=== PATIENT | male | born 1935 | race Caucasian/White ===

== ENCOUNTER → 2023-06-27 09:24 | Outpatient (REF) | payer MEDICARE, OTHER, SELFPAY | LOC: HWRAD 09:24 | PROVIDERS: ATTENDING PHYSICIAN Family Medicine | DX: R10.9 Unspecified abdominal pain (principal) | CPT/HCPCS: 71101 ==

== ENCOUNTER → 2023-06-28 06:58 | Outpatient (REF) | payer MEDICARE, OTHER, SELFPAY ==
[2023-06-28 09:34] LABS: Blood Urea Nitrogen 23 mg/dl (9-20)
== END ==
LOC: HWLAB 06:58
PROVIDERS: ATTENDING PHYSICIAN Family Medicine
DX: Z01.812 Encounter for preprocedural laboratory examination (principal)
CPT/HCPCS: 36415; 82565; 84520

== ENCOUNTER → 2023-07-02 15:03 | Outpatient (REF) | payer MEDICARE, OTHER, SELFPAY | LOC: HWRAD 15:03 | PROVIDERS: ATTENDING PHYSICIAN Family Medicine | DX: R10.9 Unspecified abdominal pain (principal) | CPT/HCPCS: 71260; 74160; Q9967 ==

== ENCOUNTER 2024-09-21 08:17 | Emergency (ER) | payer MEDICARE, OTHER, SELFPAY ==
[2024-09-21 08:23] VITALS: BP 94/55
[2024-09-21 09:13] LABS: Hematocrit 41.0 % (39.0-52.0); Hemoglobin 13.8 g/dL (13.0-18.0); Mean Corp Hgb Conc. 33.7 g/dL (33.0-37.0); Mean Corpuscular Volume 84.9 fL (80.0-94.0); Nucleated Red Blood Cells % 0 % (-); Platelet Count 179 10^3/uL (130-400); Red Cell Dist. Width 14.4 % (11.5-14.5)
[2024-09-21 09:45] LABS: ALT (SGPT) 40 U/L (0-50); AST (SGOT) 37 U/L (17-59); Albumin 3.7 g/dl (3.5-5.0); Alkaline Phosphatase 64 U/L (38-126); Blood Urea Nitrogen 31 mg/dl (9-20); Calcium 9.6 mg/dl (8.4-10.2); Carbon Dioxide 27 mmol/L (22-30); Chloride 105 mmol/L (98-107); Glucose 94 mg/dl (70-99); Potassium 4.9 mmol/L (3.5-5.1); Sodium 138 mmol/L (135-145); Total Protein 6.0 g/dl (6.3-8.2); eGFR > 60.00
[2024-09-21 09:49] LABS: Troponin I < 0.012 ng/ml
[2024-09-21 10:25] VITALS: BP 136/75
[2024-09-21 11:48] VITALS: BP 124/71
[2024-09-21 12:00] VITALS: BP 122/78
--- NOTE | 2024-09-21 12:41 | ED.GENMED ---
History of Present Illness
General
Chief Complaint: Swelling
Time Seen by Provider: 09/21/24 10:18
History of Present Illness
History of Present Illness:
89-year-old male presents to the ER with his significant other for evaluation of bilateral lower extremity edema along with a feeling of tightness in his chest which occurred this morning. Patient is 6 days postop from right hip replacement.
He has been back on his Eliquis given his prior history of atrial fibrillation. He has no prior personal history of venous thromboembolic disease nor prior history of congestive heart failure. Patient has been using his walker for ambulation. He
states that while he was walking while experiencing discomfort he did not have any worsening of his symptoms. He has been eating and drinking without any difficulty. He has been passing gas and has had 1 bowel movement since his surgery. He
denies nausea or vomiting. Patient did report some tingling discomfort to his bilateral feet which has been improving since this morning.
Past History
Past History
ED Past Medical History: Arrthythmia and Other (BPH, Gout)
ED Past Surgical History: Orthopedic (knee)
Social History
Tobacco: Non-smoker
Alcohol: None
Review of Systems
Review of Systems
Allergies reviewed?: Yes
Phy Exam
Physical Exam
Physical Exam:
Patient is awake, alert, appears in no acute distress, mucous membranes moist, conjunctiva pink, no JVD, heart regular rate and rhythm not murmurs or ectopy, lungs are clear to auscultation without wheezes rales or rhonchi, abdomen is soft and
nontender without focal pain on palpation, right lower extremity reveals his surgical dressings to be clean dry and intact, no surrounding erythema, appropriate tenderness on palpation, 2+ edema noted to right ankle, 1+ edema noted to left ankle, no
calf pain on palpation, healing appropriate ecchymosis present right lower extremity, brisk cap refill present to the toes bilaterally, GCS is 15
Scores
Heart Failure Risk
Heart Failure Risk Score: Not Applicable
Course
Orders/Labs/Results
Orders:
Orders
09/21/24 08:53
EKG [Electrocardiogram (*1)] Urgent
Reason for Study: Shortness of Breath
09/21/24 08:54
EKG- Treatment ONCE
09/21/24 09:08
Complete Blood Count/With Diff Urgent
Comprehensive Metabolic Panel Urgent
NT-proBNP Urgent
Troponin I Urgent
09/21/24 10:46
CR Chest - 2 Views Urgent
Comment:
Reason For Exam: DYSPNEA
09/21/24 10:57
Electrocardiogram (*1) Urgent
Reason for Study: Chest Pain
EKG- Treatment ONCE
US Periph Venous LOWER Ext RT Urgent
Comment:
Reason For Exam: swelling
09/21/24 11:59
Troponin I Urgent
09/21/24 13:38
Furosemide [Lasix] 40 mg PO NOW STA
Abnormal Lab Results
09/21/24
09:08
Abs Immat Gran (auto) 0.2 H 10^3/uL
(0-0.05)
Absolute Neuts (auto) 6.8 H 10^3/uL
(1.4-6.5)
Absolute Monos (auto) 1.4 H 10^3/uL
(0.1-0.6)
Immature Gran % 2.3 H %
(0-0.5)
Lymphocytes % 15.4 L %
(20.5-51.1)
Monocytes % 13.6 H %
(1.7-9.3)
BUN 31 H mg/dl
(9-20)
Total Bilirubin 1.8 H mg/dl
(0.2-1.3)
Total Protein 6.0 L g/dl
(6.3-8.2)
09/21/24 09:08
09/21/24 09:08
Very reassuring troponin x 2 they are both negative, minimal elevation in BNP, no prior for comparison, electrolytes within normal limits
Vital Signs
Initial and Last Documented VS:
Initial Vital Signs
Temp Pulse BP Pulse Ox
97.6 F 67 94/55 98
09/21/24 08:23 09/21/24 08:23 09/21/24 08:23 09/21/24 08:23
Last Documented Vital Signs
Temp Pulse Resp BP Pulse Ox
97.6 F 69 17 109/70 95
09/21/24 08:23 09/21/24 13:30 09/21/24 13:30 09/21/24 13:50 09/21/24 13:15
MDM/Problems Addressed
Differential Diagnosis Includes:
Differential diagnosis considered but not limited to CHF, ACS, arrhythmia, pneumonia, DVT along with other etiologies considered
*Radiology
Radiology exam reviewed: radiology read reviewed (IMPRESSION: Cardiomegaly without overt pulmonary edema or focal airspace disease.)
*Pulse Oximetry
SaO2: 93
Oxygen Mode of Delivery: Room air
Patient hypoxic: no
*EKG
Interpreted by ED Provider?: Yes (I dependently viewed and interpreted rhythm strip timed 1146 showing sinus rhythm with occasional PVCs. I independently viewed and interpreted twelve-lead EKG showing normal sinus rhythm with occasional PVCs, rate
73, leftward axis, right bundle branch block, no ST elevations, this is an abnormal t)
EKG Intrepretation Date: 09/21/24
EKG Intrepretation Time: 11:51
Interpretation: abnormal
Comparison EKG: no changes
Ischemia: no ischemia
*Critical Care Note
Total Time (30-74mins, 75-104mins- exclusive of procedures): Not Applicable
Update Note
Update Note:
Patient resting comfortably throughout time in the emergency department. I discussed with patient and present bedside very reassuring workup including negative troponin x 2. Minimal changes on chest x-ray, no evidence for hypoxia. I
discussed with him one-time dose of diuretic for treatment of possible mild congestive heart failure. I discussed with them need for close outpatient follow-up with his sole cutter, Dr. Bonner. I was able to reach out to Dr. Bonner who will
help facilitate close outpatient follow-up with him in the office this week. Patient was able to ambulate with a steady gait utilizing his walker and felt comfortable with plan for discharge home. They have no questions prior to leaving department.
ED Attending Note
-
Portions of this chart may have been created with voice recognition software.� Occasional wrong word or��sound alike� substitutions may have occurred due to the inherent limitations of voice recognition software.
Discharge Plan
Departure
Patient Disposition: Home (Routine Discharge)
Date of Disposition: 09/21/24
Time of Disposition: 13:42
Patient with high blood pressure during this ER visit?: No
Condition: Good
Discharge Problem:
Edema, Chest pain
Instructions: Dependent Edema (DC)
Prescriptions:
No Action
allopurinol 100 MG tablet
200 mg PO DAILY
tamsulosin 0.4 MG capsule
0.8 mg PO QPM
colchicine 0.6 MG capsule
0.6 mg PO DAILY
travoprost 1 DROP drops
1 drp BOTH EYES QPM
Patient Comments:
0.004%
amiodarone [Pacerone] 200 MG tablet
200 mg PO QPM
propranolol 60 MG tablet
60 mg PO DAILY
apixaban [Eliquis] 5 MG tablet
5 mg PO BID
metoprolol succinate 50 MG tablet extended release 24 hr
50 mg PO QPM
Referrals:
Bhavik Bonner MD [Active, Cardiology] - Tomorrow
Hiwot Delacruz DO [Family Provider, Family Practice]
Activity Restrictions/Additional Instructions:
Please elevate your legs when you are not walking. Please continue to walk utilizing your walker to help with your mobility. Please contact cardiology office in the morning to schedule point for reevaluation and further care
Interventions
Interventions:
*Risk Screen - Suicide Last Done: 09/21/24 08:48
*General Assessment Last Done: 09/21/24 08:48
*Neglect/Abuse Screening Last Done: 09/21/24 10:39
*ED- Fall Risk Assessment Last Done: 09/21/24 10:38
*ED COVID-19 Vaccine History Last Done: 09/21/24 08:48
*Nursing Disposition Last Done: 09/21/24 14:08
ED- Cardiac Assessment Last Done: 09/21/24 10:36
ED- Pulmonary Assessment Last Done: 09/21/24 10:37
ED-Skin Assessment Last Done: 09/21/24 10:37
Discharge Date and Time
Discharge Date/Time: 09/21/24 14:09
Print Language: BRITISH
[2024-09-21 12:47] LABS: Troponin I < 0.012 ng/ml
[2024-09-21 13:00] VITALS: BP 109/70
[2024-09-21] MEDS: LASIX 40 MG PO (13:50)
== END 2024-09-21 14:09 | disposition home or self-care (01) ==
LOC: EMR 08:17
PROVIDERS: Emergency Medicine; EMERGENCY PHYSICIAN Emergency Medicine; FAMILY PHYSICIAN Family Medicine
DX: R60.0 Localized edema (principal); R07.89 Other chest pain; I48.91 Unspecified atrial fibrillation; N40.0 Benign prostatic hyperplasia without lower urinary tract symptoms; Z79.01 Long term (current) use of anticoagulants; Z96.641 Presence of right artificial hip joint
CPT/HCPCS: 99284; 71046; 80053; 83880; 84484; 85025; 93005; 93971

== ENCOUNTER → 2024-09-29 07:24 | Outpatient (REF) | payer MEDICARE, OTHER, SELFPAY | LOC: HWRCS 07:24 | PROVIDERS: ATTENDING PHYSICIAN Physician Assistant; FAMILY PHYSICIAN Family Medicine | DX: R60.0 Localized edema (principal); I48.0 Paroxysmal atrial fibrillation; R06.02 Shortness of breath; I34.1 Nonrheumatic mitral (valve) prolapse; R07.89 Other chest pain | CPT/HCPCS: 93306 ==

== ENCOUNTER 2024-11-28 18:08 | Emergency (ER) | payer MEDICARE, OTHER, SELFPAY ==
[2024-11-28 18:14] VITALS: BP 136/76
[2024-11-28 22:50] VITALS: BMI 28.5
[2024-11-28] MEDS: ZOFRAN 4 MG IV (22:57)
[2024-11-28] MEDS: DILAUDID 0.5 MG IV (22:57)
--- NOTE | 2024-11-28 23:04 | ED.MUSCINJ ---
HPI-Injury
General
Chief Complaint: Fall
Source: patient and spouse
Exam Limitations: none
Time Seen by Provider: 11/28/24 22:23
Nursing documentation reviewed up to this point in time: agreed with
History of Present Illness-Injury
Is this injury a work related problem?: No
Is pt an associate of [facility]?: No
Initial Injury comments:
89-year-old male PAF status post ablation on Eliquis twice a day last tetanus shot 1 year ago slip and fall resume feet struck his left arm his left chest on the ground, no loss of consciousness no head strike his pain in his left chest and left
upper abdomen occurred around 3 PM no neck pain no paresthesias
Past History
Past History
ED Past Medical History: Arrthythmia and Other (BPH, Gout)
ED Past Surgical History: Cardiac and Orthopedic (knee)
Social History
Tobacco: Non-smoker
Alcohol: None
Drug: None
Personal:
Living: with family
Employment: Retired
Review of Systems
Review of Systems
All Other Systems: Not applicable
Respiratory: Reports trouble breathing (With deep breath); Denies cough or hemoptysis
Cardiac: Reports chest pain (Chest wall pain)
ABD/GI: Reports abdominal pain; Denies nausea, bloody stools or black stools
: Denies bleeding
Musculoskeletal: Denies muscle stiffness
Neurological: Reports no symptoms
Endocrine: Reports no symptoms
Hematologic/Lymphatic: Reports other (Wound to left forearm)
Phy Exam
Physical Exam
Physical Exam:
Physical Exam
General: no apparent distress, not acutely ill
Neck: No tongue bite no posterior neck
Heart: Rate
Lungs: no acute respiratory distress. clear bilaterally
Abdomen: Point tender in the left upper abdomen left lower ribs
Neuro: alert and oriented. no focal neurological deficits
Skin: no rash
Psychiatric: well kept. interactive and cooperative
Extremities: Skin tear with abrasion over the left forearm
Injury Course
Orders/Labs/Results
Orders:
Orders
11/28/24 18:19
Ribs, Left 3 View W/PA Chest CR [CR Ribs-left 3 Vw W/pa Chest] Urgent
Comment:
Reason For Exam: fall, sob
11/28/24 22:40
Cardiac Monitoring- Treatment ONCE
11/28/24 22:41
HYDROmorphone [Dilaudid] 0.5 mg IV NOW STA
Ondansetron Injectable [Zofran] 4 mg IV NOW STA
11/28/24 22:57
Complete Blood Count/With Diff Urgent
Comprehensive Metabolic Panel Urgent
11/28/24 23:03
Wound Dressing- Treatment ONCE
Location of Wound: arm
11/29/24 00:00
CT Chest/abd/pel W Iv Cont Urgent
Reason For Exam: trauma
Abnormal Lab Results
11/28/24
22:57
MCHC 32.6 L g/dL
(33.0-37.0)
Absolute Neuts (auto) 6.6 H 10^3/uL
(1.4-6.5)
Absolute Lymphs (auto) 1.0 L 10^3/uL
(1.2-3.4)
Absolute Monos (auto) 0.9 H 10^3/uL
(0.1-0.6)
Neutrophils % 76.1 H %
(42.2-75.2)
Lymphocytes % 12.1 L %
(20.5-51.1)
Monocytes % 10.8 H %
(1.7-9.3)
BUN 21 H mg/dl
(9-20)
Glucose 111 H mg/dl
(70-99)
Total Protein 6.2 L g/dl
(6.3-8.2)
11/28/24 22:57
11/28/24 22:57
MDM/Problems Addressed
Differential Diagnosis Includes:
Rib fracture contusion splenic injury no head injury
MDM/Problems Addressed:
Fall anticoagulated
Chronic conditions affecting care:
Anticoagulation
Acute Exacerbation and/or Progression of Chronic Illness:
Anticoagulation
*Radiology
Radiology exam reviewed: radiology read reviewed
*Pulse Oximetry
SaO2: 97
Oxygen Mode of Delivery: Room air
Patient hypoxic: no
*Critical Care Note
Total Time (30-74mins, 75-104mins- exclusive of procedures): Not Applicable
Update Note
Update Note:
Update suspect rib contusion he is anticoagulated no head strike tetanus is up-to-date wound care for his forearm due to mechanism and specifically be anticoagulated will provide analgesia check CT chest abdomen pelvis
1:[address] noted
ED Attending Note
-
Portions of this chart may have been created with voice recognition software.� Occasional wrong word or��sound alike� substitutions may have occurred due to the inherent limitations of voice recognition software.
Discharge Plan
Departure
Patient Disposition: Home (Routine Discharge)
Date of Disposition: 11/29/24
Time of Disposition: 01:33
Patient with high blood pressure during this ER visit?: No
Condition: Good
Covid-19: Not Applicable
Discharge Problem:
Contusion of rib on left side, Abrasion
Instructions: Wound Care (DC), Contusion (DC), Skin Abrasions (DC)
Prescriptions:
New
oxycodone-acetaminophen [Percocet] 5-325 mg tablet
1 tab PO Q6HPRN PRN (Reason: pain) Qty: 14 0RF
ondansetron 4 mg tablet,disintegrating
4 mg PO Q8H PRN (Reason: nausea and vomiting) Qty: 14 0RF
No Action
allopurinol 100 MG tablet
200 mg PO DAILY
tamsulosin 0.4 MG capsule
0.8 mg PO QPM
colchicine 0.6 MG capsule
0.6 mg PO DAILY
travoprost 1 DROP drops
1 drp BOTH EYES QPM
Patient Comments:
0.004%
amiodarone [Pacerone] 200 MG tablet
200 mg PO QPM
propranolol 60 MG tablet
60 mg PO DAILY
apixaban [Eliquis] 5 MG tablet
5 mg PO BID
metoprolol succinate 50 MG tablet extended release 24 hr
50 mg PO QPM
Referrals:
Hiwot Delacruz DO [Family Provider, Family Practice] - Follow up in 5-7 days
Interventions
Interventions:
*Risk Screen - Suicide Last Done: 11/28/24 18:14
*General Assessment Last Done: 11/28/24 18:14
*Neglect/Abuse Screening Last Done: 11/28/24 18:14
*ED- Fall Risk Assessment Last Done: 11/28/24 22:50
*ED COVID-19 Vaccine History Last Done: 11/28/24 22:50
ED-Musculoskeletal Assessment Last Done: 11/28/24 22:40
ED- Neurological Assessment Last Done: 11/28/24 22:40
ED-Skin Assessment Last Done: 11/28/24 22:40
Discharge Date and Time
Print Language: MALIAN
[2024-11-28 23:07] VITALS: BP 118/92
[2024-11-28 23:18] LABS: Hematocrit 43.6 % (39.0-52.0); Hemoglobin 14.2 g/dL (13.0-18.0); Mean Corp Hgb Conc. 32.6 g/dL (33.0-37.0); Mean Corpuscular Volume 84.0 fL (80.0-94.0); Nucleated Red Blood Cells % 0 % (-); Platelet Count 153 10^3/uL (130-400); Red Cell Dist. Width 14.4 % (11.5-14.5)
[2024-11-28 23:38] LABS: ALT (SGPT) 12 U/L (0-50); AST (SGOT) 17 U/L (17-59); Albumin 4.1 g/dl (3.5-5.0); Alkaline Phosphatase 98 U/L (38-126); Blood Urea Nitrogen 21 mg/dl (9-20); Calcium 9.4 mg/dl (8.4-10.2); Carbon Dioxide 29 mmol/L (22-30); Chloride 105 mmol/L (98-107); Estimated Creatinine Clearance 52 ml/min; Glucose 111 mg/dl (70-99); Potassium 4.8 mmol/L (3.5-5.1); Sodium 141 mmol/L (135-145); Total Protein 6.2 g/dl (6.3-8.2); eGFR > 60.00
[2024-11-29] VITALS: BP 112/73
[2024-11-29 01:00] VITALS: BP 126/84
== END 2024-11-29 01:50 | disposition home or self-care (01) ==
LOC: EMR 18:08
PROVIDERS: EMERGENCY PHYSICIAN Emergency Medicine; FAMILY PHYSICIAN Family Medicine
DX: S20.212A Contusion of left front wall of thorax, initial encounter (principal); S50.812A Abrasion of left forearm, initial encounter; X58.XXXA Exposure to other specified factors, initial encounter; I48.0 Paroxysmal atrial fibrillation; N40.0 Benign prostatic hyperplasia without lower urinary tract symptoms; Z79.01 Long term (current) use of anticoagulants; Z90.49 Acquired absence of other specified parts of digestive tract; Z96.611 Presence of right artificial shoulder joint; Z96.612 Presence of left artificial shoulder joint; Z96.641 Presence of right artificial hip joint
CPT/HCPCS: 99284; 96374; 96375; 71101; 71260; 74177; 80053; 85025; Q9967